=== PATIENT | male | born 1960 | race Caucasian/White ===

== ENCOUNTER → 2019-12-02 | Outpatient (CLI) | payer OTHER ==
--- NOTE | 2019-12-02 09:26 | RAD ---
EXAM DESCRIPTION: Hip,Right 2 Views (accession [id number]), Pelvis (accession [id number]) CLINICAL HISTORY: 59 years Male, PAIN IN RIGHT HIP COMPARISON: None. Findings: 3 view(s)/radiograph(s) No acute fracture or dislocation. No focal soft tissue swelling. Normal bone mineralization. 1.1 cm focus of heterotopic ossification adjacent the left hip joint. Moderate bilateral hip osteoarthritis with acetabular over coverage. Degenerative changes in the pubic symphysis, sacroiliac joints and visualized spine. IMPRESSION: Moderate bilateral hip osteoarthritis. No acute fracture. Electronically signed by: Jose A Puga MD 12/02/2019 9:24 AM CDT
--- NOTE | 2019-12-02 09:27 | RAD ---
EXAM DESCRIPTION: Hip,Right 2 Views (accession [id number]), Pelvis (accession [id number]) CLINICAL HISTORY: 59 years Male, PAIN IN RIGHT HIP COMPARISON: None. Findings: 3 view(s)/radiograph(s) No acute fracture or dislocation. No focal soft tissue swelling. Normal bone mineralization. 1.1 cm focus of heterotopic ossification adjacent the left hip joint. Moderate bilateral hip osteoarthritis with acetabular over coverage. Degenerative changes in the pubic symphysis, sacroiliac joints and visualized spine. IMPRESSION: Moderate bilateral hip osteoarthritis. No acute fracture. Electronically signed by: Jose A Puga MD 12/02/2019 9:24 AM CDT
== END ==
LOC: RAD 08:09
PROVIDERS: ATTEND Orthopaedic Surgery
DX: M16.0 Bilateral primary osteoarthritis of hip (principal)